=== PATIENT | female | born 1955 | race Caucasian/White ===

== ENCOUNTER 2020-04-13 10:17 | Day surgery (SDC) | payer MEDICAID ==
[~2020-04-13] VITALS: Ht 182.9 cm; Wt 70.1 kg
[~2020-04-13 10:17] MED LIST: ACYC-114 PO; ALPR0.5T6 PO; BUPIVACAINE/EPI 0.5% 1:200K ONE; LIDOCAINE 1%-EPI 1:100K, 20ML ONE; METO-264 PO
[2020-04-13] MEDS ORDERED: LACTATED RINGERS 1,000 ML IV SCH (10:51)
[2020-04-13 10:54] VITALS: BP 160/88
[2020-04-13] MEDS ORDERED: CHLORHEXIDINE 15 ML UDC MM ONE (11:00)
[2020-04-13] MEDS ORDERED: CHLORHEXIDINE 15 ML UDC ONE (11:01)
[2020-04-13] MEDS ORDERED: FENTANYL PF 100 MCG/2ML ONE ×2 (11:10→11:22)
[2020-04-13] MEDS ORDERED: MIDAZOLAM 1 MG/ML, 2ML ONE (11:11)
[2020-04-13] MEDS ORDERED: ONDANSETRON 2MG/ML, 2ML ONE (11:55)
[2020-04-13] MEDS ORDERED: CEFAZOLIN 1,000 MG ONE (11:55)
[2020-04-13] MEDS ORDERED: NEOSTIGMINE 1 MG/ML, 10ML ONE (11:55)
[2020-04-13] MEDS ORDERED: GLYCOPYRROLATE 0.2MG/1ML, 5ML ONE (11:55)
[2020-04-13] MEDS ORDERED: SUCCINYLCHOLINE 20 MG/ML, 10ML ONE (11:55)
[2020-04-13] MEDS ORDERED: PROPOFOL 10 MG/ML, 20ML ONE (11:55)
[2020-04-13] MEDS ORDERED: ROCURONIUM 10MG/ML,5ML ONE (11:55)
[2020-04-13] MEDS ORDERED: DEXAMETHASONE 4 MG/ML, 1ML ONE (11:55)
[2020-04-13] MEDS ORDERED: BUPIVACAINE/PF-EPI 0.5% 1:200K INFIL ONE (12:56)
[2020-04-13] MEDS ORDERED: LIDOCAINE 1%-EPI 1:100K, 30ML INFIL ONE (12:56)
[2020-04-13] MEDS ORDERED: MEPERIDINE/PF 25MG/0.5ML IVPush PRN (13:00)
[2020-04-13] MEDS ORDERED: hydrALAzine 20 MG/ML, 1ML IV PRN (13:00)
[2020-04-13] MEDS ORDERED: KETOROLAC 30 MG/1 ML IV PRN (13:00)
[2020-04-13] MEDS ORDERED: ALBUTEROL SULFATE 2.5 MG/3 ML NPPB PRN (13:00)
[2020-04-13] MEDS ORDERED: OXYcodone 5 MG/5 ML ORAL.SOL UDC PO PRN (13:00)
[2020-04-13] MEDS ORDERED: HYDROmorphone 2 MG/ML, 1ML IVPush PRN (13:00)
[2020-04-13] MEDS ORDERED: LABETALOL 5MG/ML, 20ML IV PRN (13:00)
[2020-04-13] MEDS ORDERED: ACETAMINOPHEN 325 MG TABLET PO PRN (13:00)
[2020-04-13] MEDS ORDERED: FENTANYL PF 100 MCG/2ML IV PRN (13:00)
[2020-04-13] MEDS ORDERED: DIAZEPAM 5 MG/ML, 2ML IVPush PRN (13:00)
[2020-04-13] MEDS ORDERED: PROMETHAZINE 25 MG/ML, 1ML IV PRN (13:00)
[2020-04-14] MEDS ORDERED: METOPROLOL SUCCINATE 50 MG TAB.ER.24H PO SCH (09:00)
[2020-04-14] MEDS ORDERED: ACYCLOVIR 400 MG TABLET PO SCH (09:00)
== END 2020-04-13 16:40 | disposition home or self-care (01) ==
LOC: OUT 10:17
PROVIDERS: ATTEND Orthopaedic Surgery
DX: S46.011A Strain of muscle(s) and tendon(s) of the rotator cuff of right shoulder, initial encounter (principal); S43.431A Superior glenoid labrum lesion of right shoulder, initial encounter; S46.211A Strain of muscle, fascia and tendon of other parts of biceps, right arm, initial encounter; M19.011 Primary osteoarthritis, right shoulder; M25.811 Other specified joint disorders, right shoulder; Z20.828 Contact with and (suspected) exposure to other viral communicable diseases; M81.8 Other osteoporosis without current pathological fracture; G89.18 Other acute postprocedural pain; I10 Essential (primary) hypertension; W19.XXXA Unspecified fall, initial encounter; Y93.89 Activity, other specified; Y92.89 Other specified places as the place of occurrence of the external cause; Y99.8 Other external cause status; Z79.899 Other long term (current) drug therapy; Z72.89 Other problems related to lifestyle; Z87.891 Personal history of nicotine dependence; Z82.49 Family history of ischemic heart disease and other diseases of the circulatory system
CPT/HCPCS: 29822; 29824; 29826; 29827; 36415; 64415; 87635; 93005; C1713; J0690; J1100; J2250; J2405; J2704; J2710; J3010; J3490; J7120; J0330